=== PATIENT | male | born 1990 | race Two or more races ===

== ENCOUNTER 2017-05-12 18:53 | Emergency (ER) | payer MEDICAID, OTHER ==
[~2017-05-12] VITALS: Ht 175.3 cm; Wt 85.1 kg
[2017-05-12 18:55] VITALS: BP 133/78
[2017-05-12] MEDS ORDERED: LIDOCAINE 1%, 20ML ONE (19:07)
[2017-05-12] MEDS ORDERED: BACITRACIN ZINC OINT 500U/GM, 0.9 GM ONE (19:16)
[2017-05-12] MEDS ORDERED: BUPIVACAINE 0.25% ONE (19:18)
[2017-05-12] MEDS ORDERED: DIPH,PERTUSS(ACELL),TET VAC/PF 0.5 ML IM-VACC ONE ×2 (19:18→19:30)
[2017-05-12] MEDS ORDERED: LIDOCAINE 1%, 20ML SQ ONE (19:30)
[2017-05-12] MEDS ORDERED: BUPIVACAINE 0.25% INFIL ONE (19:30)
== END 2017-05-12 20:02 | disposition home or self-care (01) ==
LOC: ED 19:58
DX: S61.012A Laceration without foreign body of left thumb without damage to nail, initial encounter (principal); Z23 Encounter for immunization; F12.10 Cannabis abuse, uncomplicated; W26.0XXA Contact with knife, initial encounter; Y93.89 Activity, other specified; Y99.8 Other external cause status; Y92.009 Unspecified place in unspecified non-institutional (private) residence as the place of occurrence of the external cause
CPT/HCPCS: 13131; 90471; 90715

== ENCOUNTER 2021-03-15 14:46 | Emergency (ER) | payer OTHER ==
[~2021-03-15] VITALS: Ht 175.3 cm; Wt 106.0 kg
--- NOTE | 2021-03-15 14:57 | NUR ---
OXYACETYLENE BURNER. DISCUSSED PT AND SYMPTOMS WITH DR. BRANHAM, NO CODE NEURO AT THIS TIME. EKG BEING COMPLETED IN ROOM AND [facility]S DONE BY [facility] TECH.
--- NOTE | 2021-03-15 15:25 | NUR ---
ASSUMED CARE OF PATIENT. PATIENT REPORTS A RIGHT SIDED FACIAL DROOP SINCE LAST MONDAY. VS STABLE. NO ACUTE DISTRESS NOTED. FAMILY AT BEDSIDE. CALL LIGHT IN PLACE. WILL CONTINUE TO MONITOR.
--- NOTE | 2021-03-15 15:41 | NUR ---
TARYN CHUA IN ROOM
--- NOTE | 2021-03-15 16:08 | NUR ---
DR JAMA IN ROOM
[2021-03-15 16:38] VITALS: BP 127/78
== END 2021-03-15 16:55 | disposition home or self-care (01) ==
LOC: ED 16:49
DX: G51.0 Bell's palsy (principal); R94.31 Abnormal electrocardiogram [ECG] [EKG]
CPT/HCPCS: 93005; 99283; J7512